=== PATIENT | female | born 1960 | race Caucasian/White ===

== ENCOUNTER 2022-03-13 08:20 | Observation (INO) | payer BC ==
[2022-03-08 12:01] LABS: Absolute Lymphocytes (CBC) 1.9 K/uL (0.7-4.9); Hematocrit 40.2 % (36.0-45.0); Lymphocytes % 34.4 % (15.3-44.8); RBC Red Blood Cell Count 4.41 M/uL (3.86-4.86)
[2022-03-08 12:55] LABS: Urine Appearance Clear (Clear); Urine Color Yellow (Yellow)
[2022-03-08 12:56] LABS: Urine Bilirubin NEGATIVE (Negative); Urine Blood Negative (Negative); Urine Glucose NEGATIVE (Negative); Urine Protein NEGATIVE (Negative); Urine Specific Gravity 1.025 (1.005-1.030); Urine Urobilinogen 0.2 mg/dL (0.2-1.0); Urine pH 6.5 (5.0-7.0)
[2022-03-08 13:36] LABS: SARS-CoV-2 Antigen Rapid Res Negative (Negative)
[2022-03-13] MEDS ORDERED: ROCURONIUM 50 MG/5 ML VIAL IV ONE (08:46)
[2022-03-13] MEDS ORDERED: propofoL 200 MG/20 ML VIAL IV ONE (08:46)
[2022-03-13] MEDS ORDERED: KETAMINE HCL 500 MG/5 ML VIAL ONE (08:46)
[2022-03-13] MEDS ORDERED: MIDAZOLAM HCL 2 MG/2 ML INJ ONE (08:46)
[2022-03-13] MEDS ORDERED: FENTANYL CITR 250 MCG/5 ML ONE (08:47)
[2022-03-13] MEDS ORDERED: LIDOCAINE 1% MPF 5 ML VIAL ONE (08:47)
[2022-03-13] MEDS ORDERED: NS 0.9% VIAL 10 ML ONE (08:47)
[2022-03-13] MEDS ORDERED: dexAMETHasone 10 MG/ML VIAL ONE (08:47)
[2022-03-13] MEDS ORDERED: ONDANSETRON 4 MG/2 ML VIAL ONE (08:48)
[2022-03-13] MEDS ORDERED: SCOPOLAMINE HYDROBROMIDE PATCH TD ONE (08:56)
[2022-03-13] MEDS ORDERED: Ringers Lactate 1,000 ML IV ONE ×3 (08:56→23:05)
[2022-03-13] MEDS ORDERED: CEFAZOLIN 2 GM IN 0.9% NACL 2 GM/100 ML BAG ONE (08:57)
[2022-03-13 09:12] VITALS: O2SAT 100
[2022-03-13] MEDS ORDERED: ACETAMINOPHEN 500 MG TAB ONE (09:25)
[2022-03-13] MEDS ORDERED: CELECOXIB 100 MG CAPSULE ONE (09:25)
[2022-03-13] MEDS ORDERED: NA CHLORIDE 0.9% 100 ML ONE (09:37)
[2022-03-13] MEDS ORDERED: CEFAZOLIN SODIUM 1 GM/VIAL ONE ×3 (09:37→14:53)
[2022-03-13] MEDS ORDERED: EPHEDRINE SULF 50 MG/ML VIAL ONE (10:38)
[2022-03-13] MEDS: BUPIVACAINE 0.25% PF 30 ML VIAL ONE ×2 (10:40→10:53)
[2022-03-13] MEDS: VASOPRESSIN 20 UNIT/ML VIAL ONE ×3 (13:23→13:45)
[2022-03-13] MEDS ORDERED: Mastisol Adhesive Liq ONE (14:51)
[2022-03-13] MEDS: Ringers Lactate 1,000 ML IV ONE ×2 (15:15→23:04)
[2022-03-13] MEDS ORDERED: KETOROLAC 30 MG/ML INJ ONE (15:31)
[2022-03-13] MEDS ORDERED: MEPERIDINE HCL 50 MG/ML IV PRN (16:31)
[2022-03-13] MEDS ORDERED: IBUPROFEN 600 MG TAB PO PRN (16:32)
[2022-03-13] MEDS ORDERED: PROMETHAZINE INJ 25 MG/ML AMP IV PRN ×2 (16:33)
[2022-03-13] MEDS ORDERED: PROMETHAZINE 25 MG TABLET PO PRN (16:35)
[2022-03-13 17:39] VITALS: BMI 21.2
[2022-03-13] MEDS: HYDROCODONE/APAP 5/325 MG TAB PO PRN ×2 (19:26→23:05)
[2022-03-14] MEDS: HYDROCODONE/APAP 5/325 MG TAB PO PRN ×2 (03:12→07:30)
[2022-03-14 05:16] LABS: Absolute Lymphocytes (CBC) 1.4 K/uL (0.7-4.9); Hematocrit 32.1 % (36.0-45.0); Lymphocytes % 12.2 % (15.3-44.8); MCV 91.2 fL (80-100); MPV 8.1 fL (7.6-11.3); RBC Red Blood Cell Count 3.52 M/uL (3.86-4.86)
[2022-03-14 05:59] LABS: Potassium 4.3 mmol/L (3.5-5.1)
[2022-03-14 07:48] VITALS: BP 97/53; TEMP 98.6
--- OUTSIDE RECORDS SUMMARY | 2022-03-15 14:28 | XMS REPORT | Continuity of Care Document ---
:1960 Author Organization [facility] t Address [address] [place] [address] Dr. [address] [place] [address] Care Team Providers Name Role Phone Wilmer Raya MD Primary Care Physician MICHAEL VILLASEÑOR Attending Clinician Unavailable LAB90 Attending Clinician Unavailable Michael Villaseñor MD Attending Clinician TELMA Attending Clinician Unavailable GILA Attending Clinician Unavailable Wilmer RAYA Attending Clinician Unavailable Jessica LOPEZ Attending Clinician Unavailable Payers Payer Name Policy Type Policy Number Effective Date Expiration Date [facility] 2 [id number] 2021 00:00:00 BCBS [facility] - [id number] 2015 00:00:00 OUT OF STATE Problems Condition Condition Condition Status Onset Resolution Last Treating Co mments Source Name Details Category Date Date Treatment Clinician Date Bronchitis Bronchitis Disease Active K elsey - Not - Not 7-15 Seybold Controlled Controlled 00:00: 00 Wheezing - Wheezing - Disease Active K elsey Not Not 7-15 Seybold Controlled Controlled 00:00: 00 Allergies, Adverse Reactions, Alerts Allergy Allergy Status Severity Reaction(s) Onset Inactive Treating Comm ents Source Name Type Date Date Clinician NO KNOWN Drug Active Univers ALLERGIE Class ity of [facility] Social History Social Habit Start Date Stop Date Quantity Comments Source Tobacco use and 2021-01-10 2021-01-10 Smokeless tobacco Mick lopez Seybold exposure 00:00:00 00:00:00 non-user Sex Ass[birth year] At [birth year] Dominga Se ybold 00:00:00 00:00:00 Smoking Status Start Date Stop Date Source Never smoked tobacco Doimnga Seyb old Medications Ordered Filled Start Stop Current Ordering Indication Dosage Frequency Signature Comments Components Source Medication Medication Date Date Medication? Clinician (SIG) Name Name Alendronate Yes [id number] 70mg Take 1 Dominga Sodium 70 4-05 tablet (70 Seyb old MG oral 00:00: mg total) Tablet 00 by mouth once a week Eletriptan Yes [id number] TAKE ONE Dominga Hydrobromid 4-05 TABLET BY Sey bold e 40 MG 00:00: MOUTH oral Tablet 00 NEEDED FOR MIGRAINE (MAY REPEAT IN TWO HOURS IF NECESSARY) Alendronate 2021- No Take 1 Thien sey Sodium 70 3-22 04-05 tablet by Seyb old MG oral 00:00: 00:00 mouth once Tablet 00 :00 a week Eletriptan 2021- No TAKE ONE Ke lsey Hydrobromid 3-02 04-05 TABLET BY Se ybold e 40 MG 00:00: 00:00 MOUTH oral Tablet 00 :00 NEEDED FOR MIGRAINE (MAY REPEAT IN TWO HOURS IF NECESSARY) Zolpidem Yes [id number] TAKE 1 Ke lsey Tartrate 5 9-22 TABLET BY Seyb old MG oral 00:00: MOUTH ONCE Tablet 00 DAILY NIGHTLY NEEDED FOR SLEEP Cefpodoxime 2021- No [id number] 100mg Take 1 Dominga Proxetil 7-26 04-05 tablet Seybold 100 MG oral 00:00: 00:00 (100 mg Tablet 00 :00 total) by mouth 2 times daily Nitrofurant 2021- No [id number] 100mg Take 1 Dominga oin Monohyd - 04-05 capsule Seyb old Macro 00:00: 00:00 (100 mg (Macrobid) 00 :00 total) by 100 MG oral mouth 2 Capsule times daily Albuterol 2021- No [id number] 2{puff} Q.25D Inhale 2 Dominga HFA 108 (90 7-15 04-05 puffs into S eybold Base) 00:00: 00:00 the lungs MCG/ACT IN 00 :00 every 6 AERS hours as needed for wheezing or shortness of breath Immunizations Ordered Immunization Filled Immunization Date Status Commen ts Source Name Name Tdap- (Boostrix, 2021-11-28 Completed Dominga khoury Adacel) 00:00:00 Covid-19 Vaccine 2021-05-25 Completed Dominga Michael williamsonedenilsonld (Ambassador), Mrna-lnp, 00:00:00 Daniel Protein, Pf, 30mcg/0.3ml,IM Influenza Virus 2021-05-02 Completed Dominga Se carvalho Vaccine, No Preserv, 00:00:00 age 6 months and up Covid-19 Vaccine 2020-11-08 Completed Dominga khoury (Ambassador), Mrna-lnp, 00:00:00 Daniel Protein, Pf, 30mcg/0.3ml,IM Covid-19 Vaccine 2020-10-18 Completed Dominga Michael williamsonadis (Ambassador), Mrna-lnp, 00:00:00 Daniel Protein, Pf, 30mcg/0.3ml,IM Vital Signs Vital Name Observation Time Observation Value Comments Source Systolic blood pressure 2021-11-28 13:16:00 108 mm[Hg] Dominga Chou Diastolic blood 2021-11-28 13:16:00 72 mm[Hg] Luke Chou pressure Heart rate 2021-11-28 13:16:00 80 /min Dominga S iraida Body temperature 2021-11-28 13:16:00 36.56 Jaye Jennifer Chou Respiratory rate 2021-11-28 13:16:00 14 /min Jennifer Chou Body height 2021-11-28 13:16:00 157.5 cm Dominga Michael williamsonadis Body weight 2021-11-28 13:16:00 52.617 kg Dominga Michael williamsonadis BMI 2021-11-28 13:16:00 21.22 kg/m2 Dominga khoury Procedures This patient has no known procedures. Encounters Start End Encounter Admission Attending Care Care Encounter Source Date/Time Date/Time Type Type Clinicians Facility Department ID 2021-12-06 2021-12-06 Outpatient DOMINGA VILLASEÑOR [id number] [place] 00:00:00 00:00:00 TAMIA aguila 2021-12-06 2021-12-06 Outpatient DOMINGA VILLASEÑOR [id number] Dom[place] 00:00:00 00:00:00 TAMIA Seybol d 2021-12-04 2021-12-04 Outpatient DOMINGA VILLASEÑOR [id number] Dom[place] 00:00:00 00:00:00 TAMIA Seybol d 2021-11-28 2021-11-28 Outpatient LAB90 DOMINGA GEORGE [id number] Dominga 09:15:00 09:15:00 Seybol d 2021-11-28 2021-11-28 Office Edwardo Villaseñor [id number] Dominga 08:15:00 08:45:00 Visit Tamia Devon [id number] Se deven Michael [id number] 2021-11-13 2021-11-13 Outpatient DOMINGA HOLLIS [id number] Dom[place] 00:00:00 00:00:00 EDWIN Seybol d 2021-10-25 2021-10-25 Outpatient PREDOMINGA LITTLEJOHN [id number] [place] 00:00:00 00:00:00 KATHI Seybol d 2021-09-11 2021-09-11 Outpatient DOMINGA HOLLIS [id number] Dominga 00:00:00 00:00:00 EDWIN Seybol d 2021-07-17 2021-07-17 Outpatient AGAREBECCA [id number] Dom[place]a 00:00:00 00:00:00 Seybol d 2021-03-20 2021-03-20 Outpatient AGAREBECCA [id number] Dominga 00:00:00 00:00:00 Seybol d 2021-03-20 2021-03-20 Outpatient AGAREBECCA [id number] Dom[place]a 00:00:00 00:00:00 Seybol d 2021-03-16 2021-03-16 Outpatient AGAREBECCA [id number] Dominga 10:45:00 10:45:00 Seybol d 2021-03-09 2021-03-09 Outpatient DOMINGA VILLASEÑOR [id number] Dom[place]a 10:00:00 10:00:00 TAMIA Seybol mingo 2020-12-26 2020-12-26 Outpatient REBECCA RAYA DOMINGA GEORGE [id number] Dom[place]a 00:00:00 00:00:00 Seybol d 2020-11-08 2020-11-08 Outpatient Alex LOPEZ [facility] [id number] Univers 09:30:00 09:30:00 DAVID [id number] [facility] 2020-11-08 2020-11-08 [facility] [id number] Univers 09:30:00 09:30:00 DAVID [facility] 2020-10-18 2020-10-18 [address] [facility] [id number] Univers 09:20:00 09:20:00 [id number] [facility] 2020-10-18 2020-10-18 [facility] [id number] Univers 09:20:00 09:20:00 DAVID [facility] Results This patient has no known results.
--- NOTE | 2022-03-20 11:11 | OP ---
Date of Procedure: 03/13/2022 Surgeon: Carole Isaebl MD Dope Weigh Operator: Cathleen Nieto. Preoperative Diagnoses: Uterovaginal prolapse, anterior wall prolapse, stress urinary incontinence, and incomplete uterovaginal prolapse. Postoperative Diagnoses: Stage II incomplete uterovaginal prolapse, posterior wall prolapse, perinea l body defect, stress urinary incontinence. Ebl: Minimal, 15. Urine Output: 200. Complications: No complications. Drains: Hilton catheter. Condition: Stable. Findings: Uterus small, prior endometriosis. The sacral colpopexy was performed with the help of Up sylon Y-Mesh anteriorly fixated with 2 Prolene sutures on either sides of the distal end, in a center 2-0 V-Loc, and then 2 lateral 2-0 V-Locs. Posterior attachment is a 5-point attachment as well with distal 2 Prolenes on either ends of the distal graft. Two lateral 2-0 V-Locs in the proximal part, at least 1.5 cm distal to the apex, although to the right, and then one 2-0 V-Loc in the m iddle of the 2 Prolene sutures to lay their graft fat. Sacral attachment was done with the help of P roTack and peritoneum closed with 2-0 V-Loc. A transvaginal and transobturator mid-urethral sling we re placed. The HANNAH sling with an inside-out approach. Cystoscopy was negative after the procedure. Both ureteric orifices had urine flow from both. The right one was a bit delayed but normal. Sligh t elevation in the area above the trigone from the fixation of the mesh. Posterior wall repaired wit h the help of PDS and Vicryl. Perineorrhaphy done with Vicryl as well. Procedures Performed: 1.Total laparoscopic hysterectomy, bilateral salpingo-oophorectomy. 2.Apical anterior and posterior prolapse repair with polypropylene Y mesh. 3.Posterior rectocele, enterocele, and perineal body repair. Then, mid-urethral TO HANNAH sling placed and cystoscopy. Indication: The patient is a 61-year-old with significant prolapse that was symptomatic, treated wit h vaginal therapy for vaginal epithelial improvement. She is a breast cancer patient. No estrogen w as used for treatment. Then, used a pessary temporarily, wanted permanent fixation of the repair garcia gically. Description Of Procedure: She was consented after discussing both vaginal and laparoscopic options f or sacral colpopexy if uterosacral ligaments did not appear to be a good option. After informed consent was verified, she was taken back to OR. 2 g of Ancef were given. Sequential compression devices were placed. Time-out was done. Abdomen, vulva, vagina, and perineum prepped an d draped in a sterile fashion. The patient placed in dorsal lithotomy using Burke stirrups. Arms we re tucked by the side, and after positioning was checked, the case was started. Infraumbilical 10 po rt was placed using the Anant technique. Two 8 ports were placed in the right lower quadrant and le ft lower quadrant and a 5 mm suprapubic port and later a 5 mm left upper quadrant port. After checking that all the trocars were placed appropriately, the patient was placed in a T-board, b owel retracted superiorly into the upper abdomen. Ureters undistorted in their position. Mesosalpin x was opened up. The IP ligament was isolated, fully visualizing the peritoneum between the IP and t he ureter. The peritoneum was incised and the pedicle was taken down with the help of the LigaSure. Then, a pedicle was created under the round ligament as well and taken down, then the rest of the an terior and posterior broad ligament were opened up and dissected all the way to the level of the blad jose. The bladder peritoneum was incised and dissected to open and connect to the dissection on the l eft. Then, dissection taken to the right round ligament. Then, the endometriotic implants were incl uded here. The uterosacral ligaments were not very prominent. Vessels were skeletonized, cauterized , and cut with the help of the LigaSure. On the opposite side, similar dissection was performed to isolate the IP, take it down the mesosalpin x, round ligament, anterior and posterior broad ligaments to the vessels. Once the vessels were skel etonized, they were taken down. Anterior bladder flap was created and dissection was carried inferio rly to dissect the bladder away from the anterior wall of the vagina at least 2 cm. Once this was done, a circumferential colpotomy performed the monopolar hook blade and the specimen d etached and pulled out through the vagina. The tubes and ovaries attached. After vaginal closure was placed, a 2-0 V-Loc was used to close the cuff in 2 layers starting from ri ght-to-left and [id number]-dd-nofub. Once this was completely closed, then proceeded with prolapse repair. After placing the Staples disposable vaginal retractor into the vagina. The bladder was pi cked up on both sides and dissected by creating a space above the vesicovaginal space. Dissected the bladder safely away, at least 3.5 cm distal to the vaginal cuff. After the full exposure here went down posteriorly, the peritoneum opened up. Dissection performed. The rectum seemed to be much high er in the posterior wall of the vagina. However, once the plane was found and the fat was left with the rectum and stayed closer to the vaginal wall and dissected it down at least 5 cm. Peritoneum opened up near the promontory and incised all the way down carefully elevating the periton eum and dissecting it. Mindful of the location of the ureter on the right side and the bowel on the left side. This was taken all the way and connected to the posterior vaginal dissection. Care was taken to not injure the presacral nerve plexus carefully dissecting the loose areolar tissue and fat down to the level of the anterior longitudinal ligament. The vessels towards the left were cauterized with the help of the bipolar tip. Then, once good exposure was obtained, anterior 5.5 and posterior 7.5 were taken. The posterior wall of the mesh was engaged with a 2-0 V-Loc in the distal center, and once this hkwxea-pz-ifklo suture was placed in the center and the mesh was pulled in and placed in the position of the vaginal wall. A towel was placed to not expose the mesh directly to g et in contact with the skin on the abdomen. Then, two 2-0 Prolenes were taken and they were anchored to the posterior vaginal wall without going through the full thickness and then anchored to the mesh on both ends, and these were tied down with extracorporeal sutures. Then, 2-0 V-Loc was taken and 2 sutures were placed to stabilize the posteri or graft distal to the cuff closure. Then, sacral attachment was done with the help of ProTack by exposing the anterior longitudinal ligam ent without any bowel or the vessels coming in to plug. Once this was intact with 3 ProTacks, then t his was folded over and 3 more were done. The mesh was trimmed to not leave excess. Then, anteriorl y retraction was done and 2 Prolene sutures were placed at both distal ends of the dissection without getting into the bladder. Then, these were passed through the anterior graft and the center was sec ured with the help of a 2-0 V-Loc and then two 2-0 V-Locs on either sides proximally but not on the c uff. After thorough irrigation and suction were performed, the peritoneum was closed with the help of 2-0 V-Loc in a continuous running fashion in a Y fashion. There was full closure of the retroperitoneal elevation of the mesh. This 1 spot seemed to cut open. I brought in a 3-0 Monocryl suture and did a wrincj-iw-zkfck to close this. After thorough irrigation and suction were performed, pictures were taken. The scope was pulled out. Gas was desufflated. Site of entry position. All trocar incisions were injected with 0 .25% bupivacaine. Gas was desufflated. Fascia was closed with the help of the tagged 0 Vicryl sutur es tied to each other and 4-0 chromic to close all skin incisions. Attention directed to the mid urethral sling. There was an excellent lift of the anterior vaginal wa ll without any entry of any sutures into the vaginal epithelium. Mid urethral area was picked up with 2 Allis clamps, injected with dilute vasopressin, the center and on both sides, then incised 1.5 cm in the mid-urethral area. Dissection carried to the ipsilateral obturator space hugging the inferior pubic ramus 45 degrees angle. Once this was perforated on the r ight and the left, the wing guide was placed, spike was passed and exited at a marking point per prot ocol staying inferior and medial to the adductor tendon. Similar pass on both sides. The left was v aj smooth. The right one had passed the second time as the pin got caught in the tissue and drag th e mesh out. Once the mesh was tensioned properly by holding an Allis in the center of the mesh and then adjusting the arms, plan is to retract, flush it with the skin and the skin closed with the help of Dermabond. Then, in the center, there was excellent tensioning. Vaginal mesh was irrigated and epithelium bailey sed with the help of 3-0 Vicryl sutures. On the perineum, the distal remnants of the hymen were picked up with 2 Allis clamps. The posterior defect was then assessed. The area below the mesh to the perineum was the target of repair, so a doc mond-shaped incision was made with a triangle on the top and then another small triangle on the perin eum. Epithelium was excised and epithelium and subepithelium were dissected from the fascia or the c onnective tissue that was left behind. After dissecting it all the way to the sides and exposing the remnants of the deep transverse and superficial transverse hernia, then the vaginal connective tissu e was patched together with the help of a continuous running 2-0 PDS. It appeared to be a left later al avulsion. Once this was done, then 2-0 Vicryl was used to reconstruct the perineal body with inte rrupted sutures x3 and epithelium was slightly trimmed, maybe less than 0.5 cm in total collectively for both sides, just to trim the edges without any compromise of the diameter, then closed with the h elp of 2-0 Vicryl in a continuous running fashion. The perineum closed with the help of 3-0 Vicryl i n a subcutaneous and then subcuticular fashion. Rectal exam was done, was negative. No evidence of any trauma to the rectum. Cystoscopy was performed. There were excellent jets of urine from the lef t ureteric orifice. On the right and this is a bit sluggish, but there was some urine and appeared to be normally peristaltic. No evidence of any foreign body in the area of the sling placement or mesh placement. No evidence of any tumors. The bladder was drained. Hilton was replaced. Vaginal packing was not placed. She was recovered from anesthesia and taken to PACU in stable condition. She will follow up in 1 week. Fol ey catheter was removed and voiding trials next morning. The patient admitted overnight as an outpat ient. was debriefed about the findings and the procedure. Instrument, needle, and sponge co unts were correct. CAS/MIGUEL ANGELL Voice ID: [id number] Report ID: [id number]
== END 2022-03-14 11:13 | disposition home or self-care (01) ==
LOC: OR 08:20 → 2ND-WC 16:14
PROVIDERS: ADMIT Obstetrics & Gynecology; ATTEND Obstetrics & Gynecology
PROC: 0UT24ZZ Resection of Bilateral Ovaries, Percutaneous Endoscopic Approach (ICD-10-PCS; 2022-03-13)
PROC: 0UT74ZZ Resection of Bilateral Fallopian Tubes, Percutaneous Endoscopic Approach (ICD-10-PCS; 2022-03-13)
PROC: 0TSD0ZZ Reposition Urethra, Open Approach (ICD-10-PCS; 2022-03-13)
PROC: 0UT94ZZ Resection of Uterus, Percutaneous Endoscopic Approach (ICD-10-PCS; principal; 2022-03-13 09:30)
PROC: 0UQF0ZZ Repair Cul-de-sac, Open Approach (ICD-10-PCS; 2022-03-14)
PROC: 0JUC0JZ Supplement of Pelvic Region Subcutaneous Tissue and Fascia with Synthetic Substitute, Open Approach (ICD-10-PCS; 2022-03-14)
PROC: 0JQC0ZZ Repair Pelvic Region Subcutaneous Tissue and Fascia, Open Approach (ICD-10-PCS; 2022-03-14)
PROC: 0WQNXZZ Repair Female Perineum, External Approach (ICD-10-PCS; 2022-03-14)
DX: N81.2 Incomplete uterovaginal prolapse (principal); N39.3 Stress incontinence (female) (male); R35.0 Frequency of micturition; R39.14 Feeling of incomplete bladder emptying; G43.909 Migraine, unspecified, not intractable, without status migrainosus; Z85.3 Personal history of malignant neoplasm of breast; Z90.11 Acquired absence of right breast and nipple; Z87.891 Personal history of nicotine dependence; Z79.899 Other long term (current) drug therapy; Z88.8 Allergy status to other drugs, medicaments and biological substances; Z20.822 Contact with and (suspected) exposure to COVID-19
CPT/HCPCS: 58571; 57288; 57265; 57267; 85025 ×2; 80048; 36415 ×2; 86900; 86850; 86901; 88305; 81003; 87811; G0379; J2704; J2250; J3010; J1100; J0690 ×4; J7120 ×4; J2405; G0378 ×2